=== PATIENT | male | born 1975 | race Caucasian/White ===

== ENCOUNTER → 2018-06-22 | Outpatient (CLI) | payer BC ==
[2018-06-22 17:05] LABS: Basophils # (A) 0.1 k/uL (0-0.2); Basophils % (A) 1 %; Eosinophils # (A) 0.3 k/uL (0-0.7); Eosinophils % (A) 3 %; HCT 43.6 % (39.0-53.0); HGB 14.7 gm/dL (13.0-17.5); Lymphocytes # (A) 1.6 k/uL (1.0-4.8); Lymphocytes % (A) 18 %; MCH 30.7 pg (25.0-35.0); MCHC 33.7 g/dL (31.0-37.0); MCV 91.1 fL (80.0-100.0); Mean Platelet Volume 7.8; Monocytes # (A) 0.5 k/uL (0-1.0); Monocytes % (A) 6 %; Neutrophils # (A) 6.2 k/uL (1.3-7.7); Neutrophils % (A) 70 %; Platelet Count 236 k/uL (150-450); RBC 4.79 m/uL (4.30-5.90); WBC 8.9 k/uL (3.8-10.6)
[2018-06-22 17:09] LABS: Potassium 4.2 mmol/L (3.5-5.1)
== END | disposition home or self-care (01) ==
LOC: LABPAT 16:28
PROVIDERS: ATTEND Orthopaedic Surgery
DX: M75.42 Impingement syndrome of left shoulder (principal)
CPT/HCPCS: 36415; 80051; 85025; 93005

== ENCOUNTER → 2018-06-29 | Day surgery (SDC) | payer BC ==
[2018-06-28 10:09] VITALS: BMI 34.0
--- NOTE | 2018-06-28 16:36 | HP ---
HISTORY AND PHYSICAL DATE OF SURGERY: 06/29/2018 Severino Armenta is a 42-year-old patient seen with progressive left shoulder pain. We discussed treatment options. He elected to proceed with arthroscopy. Consent regarding the procedure was obtained. PAST MEDICAL HISTORY: 1. Hypertension. 2. Hyperlipidemia. PAST SURGICAL HISTORY: Noncontributory. DAILY MEDICATIONS: Antihypertensive. ALLERGIES: NONE. SOCIAL HISTORY: Denies tobacco use. PHYSICAL EVALUATION OF LEFT SHOULDER: Flexion 120 degrees, abduction 100 degrees, external rotation 0 degrees with weakness. Tenderness along the anterolateral acromion and rotator cuff insertion site. Impingement sign positive at 80 degrees. Distal neurovascular exam is intact. RADIOGRAPHS: Radiographs of the left shoulder revealed a type 2 anterior acromion. MRI of the left shoulder revealed moderate tendinosis. IMPRESSION: 1. Left shoulder impingement with possible rotator cuff tear. 2. Left shoulder adhesive capsulitis. PLAN: Left shoulder arthroscopy with subacromial decompression, possible arthroscopic rotator cuff repair, possible lysis of adhesions and debridement. MMODL / IJN: [id number] /
[~2018-06-29] MED LIST: BUPIVACAINE (PF) 0.5% 30 ML VIAL ONE; DEXAMETHASONE SOD PHOSPHATE 10 MG/ML 1 ML VIAL IV ONE; KETOROLAC 30 MG/ML 1 ML VIAL IVP ONE; LACTATED RINGERS 1,000 ML IV SCH; LIDOCAINE 1% 20 ML VIAL (10MG/ML) FOR IV START INTRADERMA PRN; LIDOCAINE 1% INJ 10MG/ML (20 ML MDV) ONE; MIDAZOLAM (PF) 2 MG/2 ML VIAL IV ONE; MIDAZOLAM 2 MG/2 ML VIAL ONE; ONDANSETRON 4 MG/2 ML VIAL IVP ONE; PROPOFOL 10 MG/ML 20 ML VIAL IV ONE; ROPIVACAINE 5 MG/ML 30 ML VIAL ONE; SCOPOLAMINE 1.5MG/72HR PATCH TRANSDERM ONE; SUCCINYLCHOLINE CHLORIDE 100 MG/5 ML SYR IV ONE; ceFAZolin 3 GM in SODIUM CHLORIDE 0.9% 100 ML IVPB ONE; fentaNYL (PF) 50 MCG/ML 2 ML AMP IV ONE; fentaNYL (PF) 50 MCG/ML 2 ML AMP ONE
[2018-06-29 10:34] VITALS: RESP 16; TEMP 97.6
--- NOTE | 2018-06-29 10:37 | P.OP ---
Date of Procedure: 06/29/18 Preoperative Diagnosis: Left shoulder impingement Postoperative Diagnosis: 1. Left shoulder impingement 2. Left shoulder acromioclavicular joint osteoarthritis 3. Left shoulder superficial partial rotator cuff tear 4. Left shoulder partial long head biceps tendon tear 5. Left shoulder glenohumeral joint adhesions Procedure(s) Performed: 1. Left shoulder arthroscopic subacromial decompression 2. Left shoulder arthroscopic London procedure 3. Left shoulder debridement superficial partial rotator cuff tear 4. Left shoulder partial long head biceps tendon tear 5. Left shoulder glenohumeral joint lysis of adhesions Implants: None Anesthesia: GETA, regional (Interscalene block) Surgeon: Zay Keith Estimated Blood Loss (ml): 6 Pathology: none sent Condition: stable Disposition: PACU Indications for Procedure: 42-year-old patient seen with progressive left shoulder pain. After having treatment options discussed, he elected to proceed with arthroscopy. Operative Findings: See description of procedure Description of Procedure: Patient underwent an interscalene block by department of anesthesia for postoperative pain management. The patient was then taken to the operative suite. The patient underwent a general anesthetic by the department of anesthesia. The patient was placed into a lateral position and secured. There was appropriate padding of the bony prominence. Left shoulder was then prepped and draped in normal sterile orthopedic fashion. We placed the extremity in 10 pounds of longitudinal traction. A posterior incision was now made for a posterior working portal site. The trocar and cannula were inserted into the glenohumeral joint. Arthroscopy was initiated. Spinal needle was now inserted anteriorly, to ascertain the anterior working portal site. An incision was now made in that area, a trocar was inserted followed by a probe. There was significant adhesions noted throughout the glenohumeral joint. There was hyperemia partial tearing long head biceps tendon. There was mild fraying of the superior labrum. There were grade 1 chondromalacia changes of the glenohumeral joint. I performed an arthroscopic biceps tenotomy. I debrided that superficial fraying of the superior labrum. I now performed a lysis of adhesions the glenohumeral joint. At this point instruments removed from glenohumeral joint. Utilizing the posterior working portal site, the trocar and cannula were inserted into the subacromial space. Arthroscopy initiated. I made an incision 2 fingerbreadths lateral to the acromion. I introduced my trocar followed by my [facility] ablator. I now began ablating thick subacromial bursal tissue, which exposed the undersurface of the anterior acromion. There was diminished subacromial space. There was a very prominent anterior acromion. A motorized bur was introduced and a subacromial decompression was performed. I also excised some osteophytes off the inferior aspect of the distal clavicle. The AC joint was visualized and noted to be fairly arthritic. The motorized bur was introduced in the anterior portal site and a London procedure was performed without difficulty, decompressing the AC joint nicely. I turned my attention to the rotator cuff. There was some superficial tearing along the distal supraspinatus area. I debrided that utilizing motorize shaver. It appeared to involve approximately 20% of the superficial fibers. The remaining area was thoroughly probed and was no perforation in reasonable health the rotator cuff tendon tissue that remained. I now injected 1 mL Renue in the area of the de brided rotator cuff. Instruments now removed from the portal sites. All portal sites were approximated with nylon suture. Sterile dressings were applied followed by a shoulder sling. The patient was awakened, transferred to a bed, and taken to recovery in stable condition.
[2018-06-29] MEDS: HYDROmorphone 0.5 MG/0.5 ML SYRINGE IVP PRN ×2 (10:48→10:52)
[2018-06-29 11:47] VITALS: BP 132/83; PULSE 66
--- NOTE | 2018-06-30 07:48 | P.ONQ ---
Anesthesiology Proc Note - PNB - Peripheral Nerve Block Performed Left Interscalene Single Time Out Performed: Yes Indication: Acute Post-Operative Pain, Requested by physician Sedation Type: Sedate with meaningful contact maintained Preparation: Sterile Prep Position: Supine Needle Size: 50mm (2") Needle Gauge: 21 Technique: Ultrasound Injectate: 0.5% Ropivacaine (see comment for volume) (ropi .5% 30cc plus [id number]) Blood Aspirated: No Pain Paresthesia on Injection Noted: No Resistance on Injection: Normal Events: Uneventful and Well Tolerated
== END | disposition home or self-care (01) ==
LOC: OR 06:03
PROVIDERS: ATTEND Orthopaedic Surgery
DX: M75.112 Incomplete rotator cuff tear or rupture of left shoulder, not specified as traumatic (principal); M75.42 Impingement syndrome of left shoulder; M19.012 Primary osteoarthritis, left shoulder; S46.112A Strain of muscle, fascia and tendon of long head of biceps, left arm, initial encounter; S43.432A Superior glenoid labrum lesion of left shoulder, initial encounter; X58.XXXA Exposure to other specified factors, initial encounter; M75.02 Adhesive capsulitis of left shoulder; M94.212 Chondromalacia, left shoulder; M25.712 Osteophyte, left shoulder; I10 Essential (primary) hypertension; E78.5 Hyperlipidemia, unspecified; Z79.899 Other long term (current) drug therapy
CPT/HCPCS: 64415; 29823; 29824; C1765; J2250 ×2; J1100; J0690; J2405; J2001; J3010; J1885; J2795; J0330; J2704; J1170

== ENCOUNTER → 2021-01-13 | Outpatient (CLI) | payer BC ==
--- NOTE | 2021-01-13 20:57 | CONS ---
CONSULTATION REASON FOR CONSULTATION: Sleep apnea. This is a very pleasant 45-year-old male patient who was referred to me for sleep apnea evaluation. The patient works locally at [employer]. The patient had a bout of atrial fibrillation in September of 2020. At that time he was treated and he was ultimately cardioverted in October of 2020. Since this episode, the patient lost around 26 pounds. The patient did not have any other secondary cause for atrial fibrillation. The patient was referred to me to rule out obstructive sleep apnea. He does snore. He does wake up at least 3 times in the middle of night to urinate. He goes to bed around midnight, wakes up at 8 a.m. in the morning, and his functionality is very good at work. He does not fall asleep while driving or at work or while working on his computer. BP is under good control. He is currently on anticoagulation. No sleep paralysis. No hallucinations. No cataplexy. He sleeps on his side. Sleep quality and hygiene in general are good. PAST MEDICAL HISTORY: Paroxysmal atrial fibrillation, post cardioversion. SURGICAL HISTORY: Surgical history includes cardioversion and left shoulder surgery. DRUG ALLERGIES: NOT KNOWN. OUTPATIENT MEDICATION: Outpatient medication includes Lipitor 10 mg p.o. daily, metoprolol 50 mg p.o. daily, lisinopril 5 mg p.o. daily, Xarelto 20 mg p.o. daily. SOCIAL HISTORY: Nonsmoker. No history of alcoholism. No history of IV drugs. FAMILY HISTORY: Questionable history of sleep apnea in his father. REVIEW OF SYSTEMS: Fourteen-point review of systems was done. Positive findings are all mentioned above in the history of present illness. Twenty-pound weight loss is among the positive findings in review of systems. He has nocturia. No grinding of the teeth. No sleepwalking or sleeptalking. No anxiety. No panic attacks. No palpitations. No alcoholism. No restless legs. No claustrophobia. No sexual dysfunction. PHYSICAL EXAMINATION: BP is 124/80, pulse 84, respirations 16, temperature 96.9, saturation 99% on room air. BMI 33.3. Weight is 258, height is 6 feet 1 inch. Aldrich score is down to 3. Neck size is 17-1/2 inches. GENERAL APPEARANCE: Calm, comfortable. HEAD: Atraumatic, normocephalic. Neck is supple. No JVD. No goiter or neck masses. Mallampati class IV. LUNGS: Clear to auscultation. Heart sounds are regular rate and rhythm. Normal S1, S2. No S3, S4. No murmurs. ABDOMEN: Soft, nontender. No organomegaly. EXTREMITIES: No edema. No cyanosis or clubbing. NEUROLOGIC: Awake and alert. There is no focal neurological deficit. PSYCHIATRY: Negative for anxiety or depression. IMPRESSION: 1. Paroxysmal atrial fibrillation, post cardioversion. Current rhythm is sinus. Rule out underlying obstructive sleep apnea. Other secondary causes of MICHAEL have been ruled out. 2. Loud snoring. Rule out MICHAEL. 3. No major hypersomnia or sleepiness. 4. Nocturia. 5. Hyperlipidemia. PLAN: Will screen the patient for obstructive sleep apnea. The patient will be undergoing a home sleep study to rule out MICHAEL. Meanwhile, he has lost around 26 pounds since his diagnosis of paroxysmal atrial fibrillation. This probably has helped with the symptoms and features of obstructive sleep apnea. Encourage further weight loss. Keep good sleep hygiene measures. We will continue to follow and make further recommendations based on the results of the home sleep study. MMODL / IJN: [id number] /
== END ==
LOC: SLEEP 14:18
PROVIDERS: ATTEND Internal Medicine Critical Care Medicine
DX: R06.83 Snoring (principal); I48.0 Paroxysmal atrial fibrillation; R35.1 Nocturia; E78.5 Hyperlipidemia, unspecified; Z98.890 Other specified postprocedural states; Z79.01 Long term (current) use of anticoagulants; Z79.899 Other long term (current) drug therapy
CPT/HCPCS: 99211